=== PATIENT | male | born 1985 | race African-American/Black ===

== ENCOUNTER 2018-04-06 13:39 | Emergency (ER) | payer OTHER ==
--- NOTE | 2018-04-06 14:54 | RAD REPORT ---
EXAM DESCRIPTION: Shoulder Right 2 View - 04/06/2018 2:33 pm CLINICAL HISTORY: Shoulder pain COMPARISON: None. TECHNIQUE: Portable internal and external rotation views were obtained along with scapular Y-views. FINDINGS: Positioning was not optimal. Due to restraints, patient could not be optimally positioned. The 2 frontal projections are both can internal rotation projection. Positioning of the humeral head relative to the glenoid on the frontal projections and the suboptimal scapular Y-views support a pos terior dislocation. No fracture changes seen. AC joint is normal in appearance. IMPRESSION: Exam was suboptimal due to positioning limitations. Posterior dislocation of the humeral head is evident.
[2018-04-06] MEDS ORDERED: FENTANYL CITR 100 MCG/2 ML ONE ×2 (15:12→17:50)
[2018-04-06] MEDS ORDERED: PROPOFOL 200 MG/20 ML VIAL IV ONE ×3 (15:13→17:50)
[2018-04-06] MEDS ORDERED: NA CHLORIDE 0.9% 1,000 ML ONE (15:13)
[2018-04-06] MEDS ORDERED: ONDANSETRON 4 MG/2 ML VIAL ONE ×2 (15:13→17:50)
--- NOTE | 2018-04-06 17:03 | RAD REPORT ---
EXAM DESCRIPTION: RAD - Shoulder Right 2 View - 04/06/2018 4:42 pm CLINICAL HISTORY: Right shoulder pain status post fall FINDINGS: The right humeral dislocation has not been reduced. The posterior dislocation persists. No fracture is seen
[2018-04-06] MEDS ORDERED: HYDROCODONE/APAP 10/325 TAB ONE ×2 (17:28→23:13)
--- NOTE | 2018-04-06 22:02 | ER ---
Nurse's Notes [facility] Name: Castillo Russ Age: 33 yrs Sex: Male : 1985 Arrival Date: 04/06/2018 Time: 13:46 Bed 5 Private MD: Diagnosis: Other dislocation of right shoulder joint Presentation: 04/06 13:47 Presenting complaint: Patient states: "I was pulling up on a shelf and my shoulder ph popped out of place." Reports pain in R shoulder, obvious deformity noted, pt states, " I fell and landed on my face and hit my nose." Swelling noted to ginny lower lids, pt denies LOC, reports hx of R shoulder dislocation. Transition of care: patient was not received from another setting of care. Onset of symptoms was April 06, 2018. Risk Assessment: Do you want to hurt yourself or someone else? Patient reports no desire to harm self or others. Initial Sepsis Screen: Does the patient meet any 2 criteria? No. Patient's initial sepsis screen is negative. Does the patient have a suspected source of infection? No. Patient's initial sepsis screen is negative. Care prior to arrival: None. 13:47 Method Of Arrival: Law Enforcement: [place] [employer] ph 13:47 Acuity: SHANTELLE 3 ph Historical: - Allergies: 13:54 No Known Allergies; ph - Home Meds: 13:54 Allergy meds [Active]; ph - PMHx: 13:54 None; ph - PSHx: 13:54 None; ph - Immunization history:: Adult Immunizations up to date. - Social history:: Smoking status: Patient/guardian denies using tobacco. - Ebola Screening: : No symptoms or risks identified at this time. Screenin:23 Abuse screen: Denies threats or abuse. Denies injuries from another. Nutritional ph screening: No deficits noted. Tuberculosis screening: No symptoms or risk factors identified. 14:25 Fall Risk None identified. ph Assessment: 14:00 General: Appears in no apparent distress. uncomfortable, slender, well groomed, ph Behavior is calm, cooperative, appropriate for age. Pain: Complains of pain in right shoulder. Neuro: Level of Consciousness is awake, alert, obeys commands, Oriented to person, place, time, situation. Cardiovascular: Capillary refill < 3 seconds in bilateral fingers Patient's skin is warm and dry. Respiratory: Airway is patent Respiratory effort is even, unlabored. GI: No signs and/or symptoms were reported involving the gastrointestinal system. Derm: Skin is intact, is healthy with good turgor, Skin is pink, warm \\T\\ dry. Musculoskeletal: Circulation, motion, and sensation intact. Range of motion: limited in right shoulder Bony deformity noted of right shoulder Swelling present in right arm. 15:45 Reassessment: Patient appears in no apparent distress at this time. Patient and/or ph family updated on plan of care and expected duration. Pain level reassessed. Patient is alert, oriented x 3, equal unlabored respirations, skin warm/dry/pink. Preparing pt for conscious sedation and reduction of R shoulder, consent form signed by pt. 16:30 Reassessment: Patient appears in no apparent distress at this time. Patient and/or ph family updated on plan of care and expected duration. Pain level reassessed. Patient is alert, oriented x 3, equal unlabored respirations, skin warm/dry/pink. Pt continues to c/o pain in R shoulder,ERP notified. 17:30 Reassessment: Patient appears in no apparent distress at this time. Patient and/or ph family updated on plan of care and expected duration. Pain level reassessed. Patient is alert, oriented x 3, equal unlabored respirations, skin warm/dry/pink. Pt resting quietly, VSS, awaiting results of repeat Xray. 19:30 Reassessment: Patient appears in no apparent distress at this time. Patient and/or cc3 family updated on plan of care and expected duration. Pain level reassessed. Patient is alert, oriented x 3, equal unlabored respirations, skin warm/dry/pink. Received this male patient from morning shift MATEO Patino as a case of right shoulder dislocation for reduction again, awaiting orders. Patient handcuffed from nursing home with nursing home officers around looking after him. With IV cannula gauge 18 at the left ACV with ongoing IVF of NS bolus infusing well. 19:45 Reassessment: Patient appears in no apparent distress at this time. Patient and/or cc3 family updated on plan of care and expected duration. Pain level reassessed. Patient is alert, oriented x 3, equal unlabored respirations, skin warm/dry/pink. LORETTA Patel said he's planning to transfer the patient to other facility, so as of the meantime to hold the conscious sedation order. 20:20 Reassessment: Patient appears in no apparent distress at this time. Patient and/or cc3 family updated on plan of care and expected duration. Pain level reassessed. Patient is alert, oriented x 3, equal unlabored respirations, skin warm/dry/pink. 21:18 Reassessment: Patient appears in no apparent distress at this time. Patient and/or cc3 family updated on plan of care and expected duration. Pain level reassessed. Patient is alert, oriented x 3, equal unlabored respirations, skin warm/dry/pink. 22:20 Reassessment: Patient appears in no apparent distress at this time. Patient and/or cc3 family updated on plan of care and expected duration. Pain level reassessed. Patient is alert, oriented x 3, equal unlabored respirations, skin warm/dry/pink. Patient for transfer to [facility], report handed over to MATEO Alcantara for continuity of care. Transfer form completed signed by the patient himself. 23:10 Reassessment: Patient appears in no apparent distress at this time. Patient and/or cc3 family updated on plan of care and expected duration. Pain level reassessed. Patient is alert, oriented x 3, equal unlabored respirations, skin warm/dry/pink. [facility] came for patient transport. Patient left ER vitally stable by EMS stretcher with the nursing home guards. Vital Signs: 13:50 BP 155 / 118; Pulse 75; Resp 18; Temp 97.9; Pulse Ox 100% on R/A; Weight 83.91 kg; ph Height 6 ft. 2 in. (187.96 cm); Pain 8/10; 15:00 BP 151 / 107; Pulse 58; Resp 18; Pulse Ox 100% on R/A; sg 16:00 BP 127 / 86; Pulse 56; Resp 18; Pulse Ox 100% on 100% Non-rebreather mask; sg 16:28 BP 146 / 102; Pulse 50; Resp 18; Pulse Ox 100% on R/A; sg 17:30 BP 139 / 98; Pulse 54; Resp 18; Pulse Ox 99% on R/A; ph 19:30 BP 143 / 103; Pulse 67; Resp 20 S; Temp 98.7(O); Pulse Ox 100% on R/A; cc3 20:30 BP 156 / 97; Pulse 55; Resp 17 S; Pulse Ox 100% on R/A; cc3 21:30 BP 153 / 109; Pulse 58; Resp 16 S; Pulse Ox 100% on R/A; cc3 22:35 BP 149 / 99; Pulse 62; Resp 18 S; Pulse Ox 100% on R/A; cc3 13:50 Body Mass Index 23.75 (83.91 kg, 187.96 cm) ph 16:00 see conscious sedation flow sheet for vitals sg ED Course: 13:46 Patient arrived in ED. ph 13:50 Triage completed. ph 13:52 Dung Carpio MD is Attending Physician. kdr 13:54 Arm band placed on. ph 14:20 Shoulder Right (2 View) XRAY In Process Unspecified. EDMS 14:23 Carey Stevenson, RN is Primary Nurse. ph 14:23 Patient has correct armband on for positive identification. Bed in low position. Call ph light in reach. Pulse ox on. NIBP on. 15:40 Consent for conscious sedation. sg 15:40 Inserted saline lock: 18 gauge in left antecubital area, using aseptic technique. sg 15:58 Assist provider with reduction of right shoulder using manipulation, Set up for sg procedure. Performed by Dung Carpio MD Immobilized with shoulder immobilizer Patient tolerated well. 16:42 Shoulder Right (2 View) XRAY In Process Unspecified. EDMS 19:18 [facility] jmm 22:20 Patient transferred, IV remains in place. cc3 Administered Medications: 15:50 Drug: NS 0.9% 1000 ml Route: IV; Rate: 1000 ml; Site: left antecubital; sg 17:22 Follow up: Response: No adverse reaction; IV Status: Completed infusion ph 15:52 Drug: fentaNYL (PF) 100 mcg Route: IVP; Site: left antecubital; sg 17:23 Follow up: Response: No adverse reaction ph 15:55 Drug: Zofran 4 mg Route: IVP; Site: left antecubital; sg 16:00 Follow up: Response: No adverse reaction ph 15:55 Drug: Propofol 100 mg {Note: administered by Dr Carpio.} Route: IVP; Site: left ph antecubital; 16:00 Follow up: Response: No adverse reaction; Patient is sedated ph 15:58 Drug: Propofol 100 mg {Note: Administered by Dr Carpio.} Route: IVP; Site: left ph antecubital; 16:00 Follow up: Response: No adverse reaction; Patient is sedated ph 17:21 Drug: [place] 10 mg-325 mg 1 tabs Route: PO; ph 17:21 Follow up: Response: No adverse reaction ph 23:03 Drug: [place] 10 mg-325 mg 1 tabs Route: PO; cc3 23:06 Follow up: Response: No adverse reaction cc3 Outcome: 22:01 ER care complete, transfer ordered by . [facility] 22:20 Transferred by [facility] to [facility], [facility], Transfer form completed. cc3 22:20 Condition: stable 22:20 Instructed on the need for transfer, Demonstrated understanding of instructions. 23:13 Patient left the ED. cc3 Signatures: Dispatcher [employer] EDMS Gordon Denson RN RN Dugn Carpio MD MD [facility] Tomas Patel PA PA jmm Hall, Patricia, RN RN Leilani Nagy cc3 Corrections: (The following items were deleted from the chart) 13:51 13:47 Acuity: SHANTELLE 4 ph ph 16:21 15:57 fentaNYL (PF) 100 mcg IVP in left antecubital sg sg 16:35 15:55 Propofol 100 mg IVP in left antecubital sg ph 16:35 15:58 Propofol 100 mg IVP in left antecubital sg ph 22:41 19:30 Reassessment: Patient appears in no apparent distress at this time. Patient cc3 and/or family updated on plan of care and expected duration. Pain level reassessed. Patient is alert, oriented x 3, equal unlabored respirations, skin warm/dry/pink. Received this male patient from morning shift MATEO Patino as a case of right shoulder dislocation for reduction again, awaiting orders. With IV cannula gauge 18 at the left ACV with ongoing IVF of NS bolus infusing well. cc3
--- NOTE | 2018-04-06 22:02 | EDPHYS ---
Physician Documentation [facility] Name: Castillo Russ Age: 33 yrs Sex: Male : 1985 Arrival Date: 04/06/2018 Time: 13:46 Bed 5 Private MD: ED Physician Dung Carpio HPI: 04/06 14:09 This 33 yrs old Black Male presents to ER via Law Enforcement with complaints of kdr Shoulder Pain. 14:09 The patient or guardian complains of decreased range of motion, deformity, an injury, kdr pain, that is acute, tenderness. right shoulder. Context: The problem was sustained at a [facility]. Context: resulted from Was pulling up on a shelf when he had a pop in his right shoulder and he fell to the floor hitting his face. HE denies LOC or any other injuries. He has dislocated his shoulder before, The patient experiences decreased range of motion, when rotates arm, The patient notes a deformity, an anterior fullness. Onset: The symptoms/episode began/occurred suddenly, just prior to arrival. Modifying factors: The symptoms are aggravated by movement, rotation of arm. Associated signs and symptoms: Pertinent positives:. Severity of symptoms: At their worst the symptoms were moderate, in the emergency department the symptoms are unchanged. Treatment prior to arrival includes: sling. The patient has experienced similar episodes in the past, a few times. Historical: - Allergies: 13:54 No Known Allergies; ph - Home Meds: 13:54 Allergy meds [Active]; ph - PMHx: 13:54 None; ph - PSHx: 13:54 None; ph - Immunization history:: Adult Immunizations up to date. - Social history:: Smoking status: Patient/guardian denies using tobacco. - Ebola Screening: : No symptoms or risks identified at this time. ROS: 14:09 Constitutional: Negative for fever, chills, and weight loss, Eyes: Negative for injury, kdr pain, redness, and discharge, ENT: Negative for injury, pain, and discharge, Neck: Negative for injury, pain, and swelling, Cardiovascular: Negative for chest pain, palpitations, and edema, Respiratory: Negative for shortness of breath, cough, wheezing, and pleuritic chest pain, Abdomen/GI: Negative for abdominal pain, nausea, vomiting, diarrhea, and constipation, Back: Negative for injury and pain, : Negative for injury, bleeding, discharge, and swelling, Skin: Negative for injury, rash, and discoloration, Neuro: Negative for headache, weakness, numbness, tingling, and seizure activity. Psych: Negative for depression, anxiety, suicide ideation, homicidal ideation, and hallucinations, Allergy/Immunology: Negative for hives, rash, and allergies, Endocrine: Negative for neck swelling, polydipsia, polyuria, polyphagia, and marked weight changes, Hematologic/Lymphatic: Negative for swollen nodes, abnormal bleeding, and unusual bruising. 14:09 MS/extremity: Positive for injury or acute deformity, decreased range of motion, pain, swelling, tenderness, of the anterior aspect of right shoulder. Exam: 14:09 Constitutional: This is a well developed, well nourished patient who is awake, alert, kdr and in no acute distress. Head/Face: Normocephalic, atraumatic. Eyes: Pupils equal round and reactive to light, extra-ocular motions intact. Lids and lashes normal. Conjunctiva and sclera are non-icteric and not injected. Cornea within normal limits. Periorbital areas with no swelling, redness, or edema. Neck: Trachea midline, no thyromegaly or masses palpated, and no cervical lymphadenopathy. Supple, full range of motion without nuchal rigidity, or vertebral point tenderness. No Meningismus. Chest/axilla: Normal chest wall appearance and motion. Nontender with no deformity. No lesions are appreciated. Cardiovascular: Regular rate and rhythm with a normal S1 and S2. No gallops, murmurs, or rubs. Normal PMI, no JVD. No pulse deficits. Respiratory: Lungs have equal breath sounds bilaterally, clear to auscultation and percussion. No rales, rhonchi or wheezes noted. No increased work of breathing, no retractions or nasal flaring. Abdomen/GI: Soft, non-tender, with normal bowel sounds. No distension or tympany. No guarding or rebound. No evidence of tenderness throughout. Neuro: Awake and alert, GCS 15, oriented to person, place, time, and situation. Cranial nerves II-XII grossly intact. Motor strength 5/5 in all extremities. Sensory grossly intact. Cerebellar exam normal. Normal gait. Psych: Awake, alert, with orientation to person, place and time. Behavior, mood, and affect are within normal limits. 14:09 Musculoskeletal/extremity: Extremities: grossly normal except: noted in the anterior aspect of right shoulder and posterior aspect of right shoulder: decreased ROM, pain, swelling, tenderness, Appears to be anterior dislocation by exam. Vital Signs: 13:50 BP 155 / 118; Pulse 75; Resp 18; Temp 97.9; Pulse Ox 100% on R/A; Weight 83.91 kg; ph Height 6 ft. 2 in. (187.96 cm); Pain 8/10; 15:00 BP 151 / 107; Pulse 58; Resp 18; Pulse Ox 100% on R/A; sg 16:00 BP 127 / 86; Pulse 56; Resp 18; Pulse Ox 100% on 100% Non-rebreather mask; sg 16:28 BP 146 / 102; Pulse 50; Resp 18; Pulse Ox 100% on R/A; sg 17:30 BP 139 / 98; Pulse 54; Resp 18; Pulse Ox 99% on R/A; ph 19:30 BP 143 / 103; Pulse 67; Resp 20 S; Temp 98.7(O); Pulse Ox 100% on R/A; cc3 20:30 BP 156 / 97; Pulse 55; Resp 17 S; Pulse Ox 100% on R/A; cc3 21:30 BP 153 / 109; Pulse 58; Resp 16 S; Pulse Ox 100% on R/A; cc3 22:35 BP 149 / 99; Pulse 62; Resp 18 S; Pulse Ox 100% on R/A; cc3 13:50 Body Mass Index 23.75 (83.91 kg, 187.96 cm) ph 16:00 see conscious sedation flow sheet for vitals MDM: 14:09 Data reviewed: vital signs, nurses notes. kdr 19:18 Patient medically screened. [facility] 21:58 Data reviewed: radiologic studies, plain films. Counseling: I had a detailed discussion [facility] with the patient and/or guardian regarding: the historical points, exam findings, and any diagnostic results supporting the discharge/admit diagnosis, radiology results, the need to transfer to another facility. ED course: An unsuccessful shoulder reduction was performed in the ED by myself and Dr. Carpio. I discussed the patient with Dr. Leon whom stated he is unable to perform the necessary surgery for the patient for unstable shoulder. I discussed the patient with Dr. Antoine whom evaluated the patient and then discussed the patient with Dr. John from [facility] whom accepted transfer. . 04/06 14:03 Order name: Shoulder Right (2 View) XRAY; Complete Time: 14:56 kdr 04/06 16:05 Order name: Shoulder Right (2 View) XRAY; Complete Time: 17:12 kdr 04/06 15:18 Order name: Conscious Sedation; Complete Time: 16:09 [facility] Administered Medications: 15:50 Drug: NS 0.9% 1000 ml Route: IV; Rate: 1000 ml; Site: left antecubital; sg 17:22 Follow up: Response: No adverse reaction; IV Status: Completed infusion ph 15:52 Drug: fentaNYL (PF) 100 mcg Route: IVP; Site: left antecubital; sg 17:23 Follow up: Response: No adverse reaction ph 15:55 Drug: Zofran 4 mg Route: IVP; Site: left antecubital; sg 16:00 Follow up: Response: No adverse reaction ph 15:55 Drug: Propofol 100 mg {Note: administered by Dr Carpio.} Route: IVP; Site: left ph antecubital; 16:00 Follow up: Response: No adverse reaction; Patient is sedated ph 15:58 Drug: Propofol 100 mg {Note: Administered by Dr Carpio.} Route: IVP; Site: left ph antecubital; 16:00 Follow up: Response: No adverse reaction; Patient is sedated ph 17:21 Drug: [place] 10 mg-325 mg 1 tabs Route: PO; ph 17:21 Follow up: Response: No adverse reaction ph 23:03 Drug: [place] 10 mg-325 mg 1 tabs Route: PO; cc3 23:06 Follow up: Response: No adverse reaction cc3 Disposition: 04/06/18 22:01 Transfer ordered to [facility]. Diagnosis is Other dislocation of right shoulder joint. - Reason for transfer: Higher level of care. - Accepting physician is Dr. John. - Condition is Stable. - Problem is an acute exacerbation. - Symptoms are unchanged. Addendum: 04/13/2018 09:36 Co-signature as Attending Physician, Dung Carpio MD I agree with the assessment and k dr plan of care. Signatures: Dispatcher [employer] EDMS Denson, MATEO Leyva RN, Kevin, MD MD kdr Mickail, Joel, PA PA Carey Trinh RN RN Winston Antoine MD MD gs Cordel, Charlene cc3 Corrections: (The following items were deleted from the chart) 04/06 22:37 19:25 Conscious Sedation ordered. amparo cc3 23:13 22:01 04/06/2018 22:01 Transfer ordered to [facility]. Diagnosis is cc3 Other dislocation of right shoulder joint. Reason for transfer: Higher level of care. Accepting physician is Dr. John. Condition is Stable. Problem is an acute exacerbation. Symptoms are unchanged. amparo
== END 2018-04-06 23:13 | disposition short-term general hospital (02) ==
LOC: ER 13:39
PROC: 0RSJXZZ Reposition Right Shoulder Joint, External Approach (ICD-10-PCS; principal; 2018-04-06)
DX: S43.004A Unspecified dislocation of right shoulder joint, initial encounter (principal)
CPT/HCPCS: J2405; J2704; J3010; J7030